=== PATIENT | female | born 1995 | race Caucasian/White ===

== ENCOUNTER 2016-10-31 21:57 | Emergency (ER) | payer OTHER ==
[~2016-10-31] VITALS: Ht 162.6 cm; Wt 50.5 kg
[2016-10-31 22:00] VITALS: TEMP 36.7; Ht 162.6 cm; Wt 50.5 kg
--- NOTE | 2016-10-31 22:14 | EMERGENCY ROOM VISIT NOTE ---
History Report prepared by Scribe: Nancy Crenshaw Under the Supervision of: Dr. Aryan Back D.O. First contact with patient: 22:02 Chief Complaint: HEADACHE Stated Complaint: GEORGE History of Present Illness The patient is a 21 year old female who presents to the Emergency Room with complaints of a constant headache after a metal link fence fell on her head yesterday at 3 pm. The patient states that she woke up feeing normal this morning and started to get a headache when she started to do school work. She notes some light sensitivity but denies any loss of consciousness, nausea, or vomiting. The patient took Advil and had some relief. Her last menstrual period was 3 weeks ago. The patient has no history of concussions. Source of History: patient Onset: yesterday Position: head Quality: ache Timing: constant Associated Symptoms: No LOC, No nausea, No vomiting Note: Pt notes light sensitivity Review of Systems See HPI for pertinent positives and negatives. A total of ten systems were reviewed and were otherwise negative. Past Medical & Surgical Medical Problems: (1) No active medical problems Family History no pertinent family history stated Social History Smoking Status: Never Smoker Housing Status: lives with roommate Occupation Status: student Current/Historical Medications No Active Prescriptions or Reported Meds Allergies Coded Allergies: No Known Allergies (Unverified , 10/31/16) Physical Exam Vital Signs Date Time Temp Pulse Resp B/P (MAP) Pulse Ox O2 Delivery O2 Flow Rate FiO2 10/31/16 22:00 36.7 95 16 141/88 96 Room Air Physical Exam GENERAL: Awake, alert, well-appearing, in no distress HENT: Normocephalic, atraumatic. Oropharynx unremarkable. EYES: Normal conjunctiva. Sclera non-icteric. NECK: Supple. No nuchal rigidity. FROM. No JVD. RESPIRATORY: Clear to auscultation. CARDIAC: Regular rate, normal rhythm. Extremities warm and well perfused. Pulses equal. ABDOMEN: Soft, non-distended. No tenderness to palpation. No rebound or guarding. No masses. RECTAL: Deferred. MUSCULOSKELETAL: Chest examination reveals no tenderness. The back is symmetrical on inspection without obvious abnormality. There is no CVA tenderness to palpation. No joint edema. LOWER EXTREMITIES: Calves are equal size bilaterally and non-tender. No edema. No discoloration. NEURO: Normal sensorium. No sensory or motor deficits noted. GCS 15. SKIN: No rash or jaundice noted. Medical Decision & Procedures ER Provider Diagnostic Interpretation: X ray results as stated below per my interpretation and radiologist interpretation. Other radiology results as stated below per my review and radiologist interpretation HEAD WITHOUT CONTRAST (CT) CLINICAL HISTORY: 21 years-old Female with headache. Acute headache without reported trauma. Initial exam. TECHNIQUE: Multiple axial CT images of the head were obtained without contrast. A dose lowering technique was utilized adhering to the principles of ALARA. CT DOSE: 537.48 mGy.cm COMPARISON: None. FINDINGS: No acute intracranial hemorrhage, midline shift, mass, large territorial ischemia or abnormal extra-axial collection. The calvarium is intact. The mastoid air cells, and middle ear cavities are clear. There is mild mucosal thickening of the maxillary, ethmoid and frontal sinuses. IMPRESSION: 1. No acute intracranial abnormality. 2. Mild paranasal sinus disease. The above report was generated using voice recognition software. It may contain grammatical, syntax or spelling errors. Electronically signed by: Miquel Gao M.D. Laboratory Results Test 10/31/16 22:07 Urine Test NEG (NEG) Laboratory results reviewed by me ED Course 2207: The patient was evaluated in room C1B. A complete history and physical exam was performed. 2239: I reevaluated the patient. Nonfocal neurologically 2248: I reevaluated the patient. Discussed results and discharge instructions: She verbalized understanding and agreement. The patient is ready for discharge. Medical Decision Differential diagnosis: Etiologies such as concussion, intracranial hemorrhage, skull fracture, and tension headache. Pt nonfocal at 2254, GCS 15; discussed eval with patient at bedside Medication Reconcilliation Current Medication List: was personally reviewed by me Blood Pressure Screening Patient's blood pressure: Elevated blood pressure Blood pressure disposition: Elevated BP felt to be situational Impression Primary Impression: Concussion Scribe Attestation The scribe's documentation has been prepared under my direction and personally reviewed by me in its entirety. I confirm that the note above accurately reflects all work, treatment, procedures, and medical decision making performed by me. Departure Information Dispostion Home / Self-Care Prescriptions No Active Prescriptions or Reported Meds Referrals No Doctor, Assigned (PCP) Forms HOME CARE DOCUMENTATION FORM, IMPORTANT VISIT INFORMATION Patient Instructions ED Concussion, My [facility]
--- NOTE | 2016-10-31 22:39 | DIAGNOSTIC IMAGING REPORT ---
HEAD WITHOUT CONTRAST (CT) CLINICAL HISTORY: 21 years-old Female with headache. Acute headache without reported trauma. Initial exam. TECHNIQUE: Multiple axial CT images of the head were obtained without contrast. A dose lowering technique was utilized adhering to the principles of ALARA. CT DOSE: 537.48 mGy.cm COMPARISON: None. FINDINGS: No acute intracranial hemorrhage, midline shift, mass, large territorial ischemia or abnormal extra-axial collection. The calvarium is intact. The mastoid air cells, and middle ear cavities are clear. There is mild mucosal thickening of the maxillary, ethmoid and frontal sinuses. IMPRESSION: 1. No acute intracranial abnormality. 2. Mild paranasal sinus disease. The above report was generated using voice recognition software. It may contain grammatical, syntax or spelling errors. Electronically signed by: Miquel Gao M.D. 10/31/2016 10:37 PM Dictated Date/Time: 10/31/2016 10:36 PM
[2016-10-31 23:11] VITALS: BP 131/80; PULSE 80; O2SAT 97
== END 2016-10-31 23:11 | disposition home or self-care (01) ==
LOC: C.EDB 21:59 → C.EDC 23:11
DX: S06.0X0A Concussion without loss of consciousness, initial encounter (principal); W20.8XXA Other cause of strike by thrown, projected or falling object, initial encounter

== ENCOUNTER 2016-12-12 21:50 | Emergency (ER) | payer OTHER ==
[~2016-12-12] VITALS: Ht 165.1 cm; Wt 51.2 kg
[2016-12-12 22:17] VITALS: TEMP 37.1; Ht 165.1 cm; Wt 51.2 kg
[2016-12-12] MEDS ORDERED: KETOROLAC TROMETHAMINE 15 MG/ML VIAL IV STA (22:59)
[2016-12-12] MEDS ORDERED: SODIUM CHLORIDE 0.9% 1000ML 1,000 ML IV STA (22:59)
[2016-12-12] MEDS ORDERED: KETOROLAC TROMETHAMINE 30 MG/ML VIAL ONE (23:09)
[2016-12-12 23:40] LABS: HEMATOCRIT 35.9 % (37-47); MEAN CELL VOLUME 84.3 fL (80-100); MEAN CORPUSCULAR HEMOGLOBIN 28.9 pg (25-34); MEAN CORPUSCULAR HGB CONC 34.3 g/dl (32-36); MEAN PLATELET VOLUME 10.4 fL (7.4-10.4); PLATELET COUNT 201 K/uL (130-400); RED BLOOD COUNT 4.26 M/uL (4.2-5.4); WHITE BLOOD COUNT 15.55 K/uL (4.8-10.8)
[2016-12-12 23:47] LABS: URINE APPEARANCE CLEAR (CLEAR); URINE BILIRUBIN NEG (NEG); URINE COLOR YELLOW; URINE EPITHELIAL CELL AUTO 20-30 /lpf (0-5); URINE NITRITE NEG (NEG); URINE SPECIFIC GRAVITY 1.011 (1.000-1.030); UROBILINOGEN NEG (NEG); ZZUR CULT IF INDIC CLEAN CATCH YES
[2016-12-12 23:49] LABS: MANUAL MICROSCOPIC REQUIRED? NO; REVIEW REQ? NO
[2016-12-13] LABS: BUN/CREATININE RATIO 15.2 (10-20); CALCIUM 8.8 mg/dl (8.5-10.1); CREATININE 0.77 mg/dl (0.60-1.20); POTASSIUM 3.5 mmol/L (3.5-5.1)
[2016-12-13 00:02] LABS: ALB/GLOB RATIO 1.1 (0.9-2); BASO % 0.1 %; BASO ABS # 0.01 K/uL (0-0.2); COMPLETE YES; EOS % 0.1 %; IG% 0.1 %; LYMPH % 7.1 %; LYMPH ABS # 1.11 K/uL (1.2-3.4); MONO % 8.6 %
[2016-12-13] MEDS ORDERED: SEPTRA DS HOME PACK 1 EA VIAL PO ONE (01:15)
[2016-12-13] MEDS ORDERED: SULF800T23 PO (01:19)
--- NOTE | 2016-12-13 01:21 | EMERGENCY ROOM VISIT NOTE ---
History First contact with patient: 22:48 Chief Complaint: OTHER COMPLAINT Stated Complaint: KIDNEY PAIN, LOSS OF FEELING IN HANDS/FEET, CHILLS History of Present Illness The patient is a 21 year old female who presents to the Emergency Room with complaints of flank pain. The patient states that she has had right-sided flank pain since earlier today. She also reports she has been feeling colder than normal and that her hands were turning blue while in the shower. She states the pain started on the right flank and has numbness to the left flank as well. She does report a history of kidney stones in the past but is unsure if this feels similar. She states she has slight dysuria and denies any other urinary symptoms. She denies any hematuria, fevers/chills, nausea or vomiting. She denies changes in bowel movements. Review of Systems A complete 10 point review of systems was reviewed with the patient with pertinent positives and negatives as per history of present illness. All else were negative. Past Medical/Surgical History Medical Problems: (1) No active medical problems Social History Smoking Status: Never Smoker Housing Status: lives with roommate Occupation Status: student Current/Historical Medications Scheduled Sulfa/Trimethoprim (Bactrim Ds 800MG/160MG), 1 TAB PO BID Physical Exam Vital Signs Date Time Temp Pulse Resp B/P (MAP) Pulse Ox O2 Delivery O2 Flow Rate FiO2 12/13/16 01:27 70 20 122/70 98 12/13/16 00:25 97 20 118/72 98 Room Air 12/12/16 22:17 37.1 120 20 127/92 99 Room Air Physical Exam VITALS: Vitals are noted on the nurse's note and reviewed by myself. Vital signs stable. GENERAL: This is a 21-year-old female, in no acute distress, nondiaphoretic, well-developed well-nourished. EARS: External auditory canals clear, tympanic membranes pearly rasheed without erythema or effusion bilaterally. EYES: Pupils equal round and reactive to light and accommodation. Conjunctivae without injection, sclerae without icterus. MOUTH: Mucous membranes moist. Tonsils are not enlarged. Pharynx without erythema or exudate. NECK: Supple without nuchal rigidity. No lymphadenopathy. HEART: Regular rate and rhythm without murmurs gallops or rubs. LUNGS: Clear to auscultation bilaterally without wheezes, rales or rhonchi. ABDOMEN: Positive bowel sounds x 4. Soft, nondistended. No tenderness to palpation. MUSCULOSKELETAL: No CVA tenderness. NEURO: Patient was alert and oriented to person place and time. Medical Decision & Procedures ER Provider Diagnostic Interpretation: CT ABDOMEN & PELVIS: Ectasia of the right renal collecting system and ureter. No ureteral stone. Bilateral nephrolithiasis. Appendix not identified. Small amount of fluid in the pelvis. Radiologist: Clarence Corbin MD Laboratory Results 12/12/16 23:20 Red Blood Count 4.26, Mean Corpuscular Volume 84.3, Mean Corpuscular Hemoglobin 28.9, Mean Corpuscular Hemoglobin Concent 34.3, Mean Platelet Volume 10.4, Neutrophils (%) (Auto) 84.0, Lymphocytes (%) (Auto) 7.1, Monocytes (%) (Auto) 8.6, Eosinophils (%) (Auto) 0.1, Basophils (%) (Auto) 0.1, Neutrophils # (Auto) 13.06, Lymphocytes # (Auto) 1.11, Monocytes # (Auto) 1.34, Eosinophils # (Auto) 0.01, Basophils # (Auto) 0.01 12/12/16 23:20 Test 12/12/16 23:20 White Blood Count 15.55 K/uL (4.8-10.8) Red Blood Count 4.26 M/uL (4.2-5.4) Hemoglobin 12.3 g/dL (12.0-16.0) Hematocrit 35.9 % (37-47) Mean Corpuscular Volume 84.3 fL (80-100) Mean Corpuscular Hemoglobin 28.9 pg (25-34) Mean Corpuscular Hemoglobin Concent 34.3 g/dl (32-36) Platelet Count 201 K/uL (130-400) Mean Platelet Volume 10.4 fL (7.4-10.4) Neutrophils (%) (Auto) 84.0 % Lymphocytes (%) (Auto) 7.1 % Monocytes (%) (Auto) 8.6 % Eosinophils (%) (Auto) 0.1 % Basophils (%) (Auto) 0.1 % Neutrophils # (Auto) 13.06 K/uL (1.4-6.5) Lymphocytes # (Auto) 1.11 K/uL (1.2-3.4) Monocytes # (Auto) 1.34 K/uL (0.11-0.59) Eosinophils # (Auto) 0.01 K/uL (0-0.5) Basophils # (Auto) 0.01 K/uL (0-0.2) RDW Standard Deviation 41.5 fL (36.4-46.3) RDW Coefficient of Variation 13.4 % (11.5-14.5) Immature Granulocyte % (Auto) 0.1 % Immature Granulocyte # (Auto) 0.02 K/uL (0.00-0.02) Red Blood Cell Morphology Unremarkable Urine Color YELLOW Urine Appearance CLEAR (CLEAR) Urine pH 6.0 (4.5-7.5) Urine Specific [place] 1.011 (1.000-1.030) Urine Protein NEG (NEG) Urine Glucose (UA) NEG (NEG) Urine Ketones NEG (NEG) Urine Occult Blood TRACE (NEG) Urine Nitrite NEG (NEG) Urine Bilirubin NEG (NEG) Urine Urobilinogen NEG (NEG) Urine Leukocyte Esterase MODERATE (NEG) Urine WBC (Auto) >30 /hpf (0-5) Urine RBC (Auto) 5-10 /hpf (0-4) Urine Hyaline Casts (Auto) 5-10 /lpf (0-5) Urine Epithelial Cells (Auto) 20-30 /lpf (0-5) Urine Bacteria (Auto) 2+ (NEG) Urine Test NEG (NEG) Anion Gap 11.0 mmol/L (3-11) Est Creatinine Clear Calc Drug Dose 94.2 ml/min Estimated GFR () 128.8 Estimated GFR (Non- 111.1 BUN/Creatinine Ratio 15.2 (10-20) Calcium Level 8.8 mg/dl (8.5-10.1) Total Bilirubin 0.4 mg/dl (0.2-1) Aspartate Amino Transf (AST/SGOT) 10 U/L (15-37) Alanine Aminotransferase (ALT/SGPT) 12 U/L (12-78) Alkaline Phosphatase 66 U/L (45-117) Total Protein 7.4 gm/dl (6.4-8.2) Albumin 3.9 gm/dl (3.4-5.0) Globulin 3.5 gm/dl (2.5-4.0) Albumin/Globulin Ratio 1.1 (0.9-2) Lipase 161 U/L (73-393) Medications Administered Medications (Trade) Dose Ordered Sig/Ana Route Start Time Stop Time Status Last Admin Dose Admin Sodium Chloride 1,000 ml @ 999 mls/hr Q1H1M STAT IV 12/12/16 22:59 12/12/16 23:59 DC 12/12/16 23:20 999 MLS/HR Ketorolac Tromethamine (Toradol Inj) 30 mg STK-MED ONCE .ROUTE 12/12/16 23:09 12/12/16 23:10 DC 12/12/16 23:20 30 MG Trimethoprim/ Sulfamethoxazole (Sulfameth/ Trimeth Ds 800/ 160MG Home Pack) 1 homepack UD ONCE PO 12/13/16 01:15 12/13/16 01:16 DC 12/13/16 01:24 1 HOMEPACK Medical Decision Differential diagnosis includes kidney stone, pyelonephritis, cholecystitis, pancreatitis, urinary tract infection, appendicitis, constipation, among others. The patient is a 21-year-old female who presents today complaining of right flank pain and dysuria. Labs revealed a leukocytosis of 15,000. Urinalysis was suggestive of infection. CT of the abdomen and pelvis showed no evidence of ureteral stone or pyelonephritis. Patient will be treated with Bactrim for a UTI. She was reevaluated and had complete resolution of her pain after 15 mg Toradol. She was instructed to follow-up with [facility] this week for further evaluation. The patient's case was reviewed with Dr. Alcazar, ED attending physician, who agreed with my assessment and treatment plan. Based on the patient's presentation and work up, I feel the patient is stable for outpatient treatment. The patient was educated to return to the emergency department for any worsening of their current condition or new/concerning symptoms. She will follow up with [facility]. Medication Reconcilliation Current Medication List: was personally reviewed by me Blood Pressure Screening Patient's blood pressure: Normal blood pressure Impression Primary Impression: Urinary tract infection Departure Information Dispostion Home / Self-Care Condition GOOD Prescriptions Sulfa/Trimethoprim (Bactrim Ds 800MG/160MG) Tab 1 TAB PO BID for 10 Days, #20 TAB Prov: Sara Joya ., FRANCISCO 12/13/16 Referrals [facility] (PCP) Patient Instructions My [facility] Additional Instructions You have been treated in the Emergency Department for a Urinary Tract Infection (UTI). You have been prescribed Bactrim to be taken twice daily as prescribed. This is an antibiotic. All antibiotics have the potential to cause diarrhea. Stop this medication and contact a medical provider if you were to develop any significant adverse side effects including: wheezing, shortness of breath, passing out, vomiting, or a diffuse rash. Always take antibiotics as directed and COMPLETE the ENTIRE course regardless of the improvement of your symptoms. Drink plenty of water and stay well hydrated. As with any trip to the Emergency Department, you should follow-up with your Primary Care Provider from today's visit. You should follow-up with [facility] this week for a recheck. Return to the emergency department if your symptoms persist despite treatment plan outlined above or if the following symptoms occur: Fevers, vomiting, worsening pain or any other new/concerning symptoms.
[2016-12-13 01:27] VITALS: BP 122/70; PULSE 70; O2SAT 98
--- NOTE | 2016-12-13 07:11 | DIAGNOSTIC IMAGING REPORT ---
CT SCAN OF THE ABDOMEN AND PELVIS WITHOUT CONTRAST CLINICAL HISTORY: Right flank pain. History of calculi. COMPARISON STUDY: No previous studies for comparison. TECHNIQUE: CT scan of the abdomen and pelvis was performed from the lung bases to the proximal femurs. Images are reviewed in the axial, sagittal, and coronal planes. IV contrast was not administered for this examination. A dose lowering technique was utilized adhering to the principles of ALARA. CT DOSE: 292.40 mGy.cm FINDINGS: Lower chest: The heart is normal in size and configuration, without pericardial effusion. The lung bases and pleural spaces are clear. Liver: The unenhanced liver is normal in size, contour, and attenuation. There is no intrahepatic biliary ductal dilatation. Gallbladder: Unremarkable. Spleen: Normal in size and attenuation. Pancreas: Unremarkable. Adrenal glands: Unremarkable. Kidneys: There is a 3 mm lower pole left renal calculus. 3 right renal calculi are visualized, the largest of which measures 4.5 mm. There is mild right-sided hydronephrosis. Given history of right flank pain, the findings could indicate a recently passed calculus. Bowel: There are no transition zones indicate bowel obstruction. There are no findings to indicate acute appendicitis. There are no findings to indicate acute diverticulitis. Peritoneum: There is trace free fluid likely physiologic. No free air is visualized Vasculature: The abdominal aorta is normal in course and caliber. Adenopathy: None. Pelvic viscera: The bladder, and pelvic viscera are unremarkable. Skeletal structures: No destructive osseous lesions are seen. IMPRESSION: 1. Bilateral nephrolithiasis 2. Mild fullness of the right renal collecting system and ureter. Given the history of right flank pain, the findings could indicate a recently passed calculus. No ureteral calculi are visualized 3. No evidence of bowel obstruction. No evidence of free air Electronically signed by: Abisai Mills M.D. 12/13/2016 7:10 AM Dictated Date/Time: 12/13/2016 7:05 AM
--- NOTE | 2016-12-15 12:06 | Pharmacy Progress Note ---
ED Pharmacist Culture FollowUp Date of Service: Dec 15, 2016. Patient was sent home with a prescription for Bactrim, which should cover the E. coli growing from the patient's urine culture.
== END 2016-12-13 01:28 | disposition home or self-care (01) ==
LOC: C.EDB 22:11
DX: N39.0 Urinary tract infection, site not specified (principal); Z87.442 Personal history of urinary calculi